=== PATIENT | female | born 1990 | race Hispanic/Latino ===

== ENCOUNTER 2017-07-05 01:02 | Emergency (ER) | payer BC, MEDICAID ==
[2017-07-05 01:02] VITALS: BMI 30.7
[2017-07-05 01:21] VITALS: BP 119/69; PULSE 81; TEMP 98
[2017-07-05] MEDS ORDERED: Albuterol-Ipratrop 3 mg / 0.5 (3 ml) UD INH STA ×3 (01:31)
[2017-07-05] MEDS ORDERED: Albuterol-Ipratrop 3 mg / 0.5 (3 ml) UD ONE ×2 (01:39→01:40)
--- NOTE | 2017-07-05 01:52 | ED PDOC ---
HPI: Asthma Time Seen by Provider: 07/05/17 01:23 Chief Complaint (Nursing): Chest Pain Chief Complaint (Provider): chest tightness and back pain History Per: Patient History/Exam Limitations: no limitations Onset/Duration Of Symptoms: Days (x 3) Current Symptoms Are (Timing): Still Present Associated Symptoms: Cough Precipitating Factors: Weather Change Additional Complaint(s): Sander is a 27 y/o female with a history of asthma, who presents to the ED c/o chest tightness and back pain as well as dry cough for the past 3 days. Using inhaler with only mild relief. Pain is worse with deep inspiration. Patient describes symptoms as consistent with previous asthma exacerbations. States her usual triggers are weather changes. PMD: Gabriela Rodriguez Past Medical History Reviewed: Historical Data, Nursing Documentation, Vital Signs Vital Signs: Last Vital Signs Temp 98.0 F 07/05/17 01:17 Pulse 81 07/05/17 01:17 Resp 17 07/05/17 01:17 BP 119/69 07/05/17 01:17 Pulse Ox 99 07/05/17 01:17 - Medical History PMH: Asthma, Bronchitis, Pneumonia Denies: Chronic Kidney Disease - Surgical History Surgical History: - Family History Family History: States: Unknown Family Hx - Social History Current smoker - smoking cessation education provided: No Alcohol: None Drugs: Denies - Home Medications Home Medications: Ambulatory Orders Medication Instructions Recorded Albuterol HFA [Ventolin HFA 90 2 puff IH Q4H #1 puff 07/20/14 mcg/actuation (8 g)] Azithromycin [Zithromax] 250 mg PO DAILY #6 cap 07/20/14 Codeine Phos/Phenyleph HCl/P 5 ml PO Q6H #100 syr 07/20/14 [Phenergan Vc W/Codeine 120 ml] Albuterol HFA [Ventolin HFA 90 2 puff IH Q4 PRN #1 inh 01/28/15 mcg/actuation (8 g)] Fluticasone/Salmeterol 250/50 1 puff IH Q12 #1 inh 01/28/15 [Advair Diskus] Prednisone [Orasone] 20 mg PO BID #8 tab 01/28/15 Albuterol HFA [Ventolin HFA 90 2 puff IH Q4H #1 puff 01/18/16 mcg/actuation (8 g)] predniSONE [predniSONE Tab] 10 mg PO TID #15 tab 01/18/16 predniSONE [predniSONE Tab] 60 mg PO QAM #12 tab 07/05/17 - Allergies Allergies/Adverse Reactions: Allergies Allergy/AdvReac Type Severity Reaction Status Date / Time No Known Allergies Allergy Verified 04/02/16 12:30 Review of Systems ROS Statement: Except As Marked, All Systems Reviewed And Found Negative Cardiovascular: Positive for: Chest Pain (tightness) Respiratory: Positive for: Cough (dry) Musculoskeletal: Positive for: Back Pain Physical Exam - Reviewed Nursing Documentation Reviewed: Yes Vital Signs Reviewed: Yes - Physical Exam Appears: Positive for: Non-toxic, No Acute Distress Head Exam: Positive for: ATRAUMATIC, NORMAL INSPECTION, NORMOCEPHALIC Skin: Positive for: Normal Color, Warm, Dry Eye Exam: Positive for: EOMI, Normal appearance, PERRL ENT: Positive for: Normal ENT Inspection Neck: Positive for: Normal, Painless ROM Cardiovascular/Chest: Positive for: Regular Rate, Rhythm. Negative for: Murmur Respiratory: Positive for: Wheezing (Bilateral diffuse expiratory wheezing with decreased air entry) Gastrointestinal/Abdominal: Positive for: Normal Exam, Soft. Negative for: Tenderness Back: Positive for: Normal Inspection. Negative for: L CVA Tenderness, R CVA Tenderness, Vertebral Tenderness Extremity: Positive for: Normal ROM. Negative for: Pedal Edema, Deformity Neurologic/Psych: Positive for: Alert, Oriented. Negative for: Motor/Sensory Deficits - ECG O2 Sat by Pulse Oximetry: 99 (RA) Pulse Ox Interpretation: Normal Medical Decision Making Medical Decision Making: Time: : Initial Impression: 27 y/o female with chest pain in setting of asthma exacerbation Initial Plan: --EKG --Urine test --Trial of Duoneb and Prednisone with Peak Flow pre/post treatment --Pending reevaluation and disposition Time: :30 --Reports marked improvement in symptoms --Patient is stable for discharge Diagnosis: Asthma Exacerbation Patient will be discharged with Rx for Prednisone. Counseling was provided and all questions were answered regarding diagnosis and need for follow up with PMD. There is agreement to discharge plan. Return if symptoms persist or worsen. Scribe Attestation: Documented by Celi Hernandez, acting as a scribe for Andres Canada MD Provider Scribe Attestation: All medical record entries made by the Scribe were at my direction and personally dictated by me. I have reviewed the chart and agree that the record accurately reflects my personal performance of the history, physical exam, medical decision making, and the department course for this patient. I have also personally directed, reviewed, and agree with the discharge instructions and disposition. Disposition - Clinical Impression Clinical Impression: Asthma exacerbation - Patient ED Disposition Is Patient to be Admitted: No Counseled Patient/Family Regarding: Diagnosis, Need For Followup - Disposition Disposition: Routine/Home Disposition Time: 02:30 Condition: STABLE Prescriptions: predniSONE [predniSONE Tab] 60 mg PO QAM #12 tab Instructions: Asthma (ED) Forms: [employer] ([place])
[2017-07-05 02:43] VITALS: RESP 16
[2017-07-05 02:48] VITALS: O2SAT 98
--- NOTE | 2017-07-05 20:53 | CARD ---
APPROVED REPORT EKG Measurement Heart [id number] NM [id number] <Conclusion> Normal sinus rhythm Normal ECG
== END 2017-07-05 03:02 | disposition home or self-care (01) ==
LOC: H.ER 01:02
DX: J45.901 Unspecified asthma with (acute) exacerbation (principal)